=== PATIENT | female | born 1960 | race Caucasian/White ===

== ENCOUNTER 2018-03-07 14:39 | Observation (INO) ==
--- NOTE | 2018-03-06 21:25 | MH ---
cc: Rodrigue Conner MD DATE OF ADMISSION: 03/07/2018 CHIEF COMPLAINT: Pelvic pressure with left ovarian mass. HISTORY OF PRESENT ILLNESS: The patient is a 57-year-old white female, para 0-1-1-2, who returned for annual visit on 01/22/2018 reporting some pelvic pressure. Her Pap smear was normal. A pelvic ultrasound obtained on 02/09/2018, which showed a complex left adnexal mass measuring 4.6 cm, which is enlarged from a simple cyst 1 year ago. Right ovary had a simple cyst measuring 9 mm. Uterus was normal size. Endometrium is 3 mm. Her CA-125 was 7. She is now admitted for surgical evaluation. PAST MEDICAL HISTORY: History of migraines. PAST SURGICAL HISTORY: for twins in 1996. She had a breast biopsy, right side 1994. MEDICATIONS: Vitamins. ALLERGIES: NONE. SOCIAL HISTORY: She is . 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 Alcohol, tobacco and drugs are none. FAMILY HISTORY: Noncontributory. REVIEW OF SYSTEMS: Negative. PHYSICAL EXAMINATION: GENERAL: She is a well-nourished, well-developed white female. VITAL SIGNS: Stable. HEENT: Normal. CHEST: Clear. HEART: Regular rate. BREASTS: Symmetrical. ABDOMEN: Benign. PELVIC: Normal external genitalia and BUS. Vagina is normal. Cervix normal. Uterus is normal size and shape. Left adnexa is cystic. ASSESSMENT: As above. PLAN: She is now admitted for laparoscopy with planned lash BSO, possible TAHBSO, frozen section. The procedure, the risks and benefits and complications and possible need for larger incision explained and accepted. Of note, she has a history of positive antiphospholipid antibodies requiring prophylactic heparin during her . We will need to consider postoperative anticoagulation. Rodrigue Conner MD JAW/sj , 07:55 PM , 08:02 PM
[~2018-03-07 14:39] MED LIST: Bupivacaine Liposomal PF 1.3% Inj 20 ML Vial ONE
[2018-03-07] MEDS ORDERED: Sodium Chloride 0.9% 2 ML Flush PRN IV.FLUSH (15:27)
[2018-03-07] MEDS ORDERED: Chlorhexidine Gluconate 2% 1 Pack (2 Cloths) TOPICAL ONE (15:29)
[2018-03-07] MEDS ORDERED: Metoprolol Tartrate 25 MG Tablet PO ONE (15:29)
[2018-03-07] MEDS ORDERED: ceFAZolin 2 GM IV; once IV.SIG SCH (15:30)
[2018-03-07] MEDS ORDERED: Sodium Chlor 0.9% Inj 500 ML IV.SIG SCH (16:00)
[2018-03-07] MEDS ORDERED: Sugammadex Inj 200 MG/2 ML Vial IV.PUSH ONE (16:57)
[2018-03-07] MEDS ORDERED: Ketorolac Inj 30 MG/ML (IVP) Vial IV.PUSH ONE (17:15)
[2018-03-07] MEDS ORDERED: Lidocaine PF 1% Inj 5 ML Syringe OTHER ONE (17:15)
[2018-03-07] MEDS ORDERED: Zolpidem Tartrate 5 MG Tablet PO PRN (18:25)
[2018-03-07] MEDS ORDERED: Ketorolac Inj 30 MG/ML (IVP) Vial IV.PUSH SCH (18:30)
[2018-03-07] MEDS ORDERED: Pantoprazole Sodium 20 MG DR Tablet PO PRN (18:45)
[2018-03-07] MEDS ORDERED: HYDROmorphone PF Inj 2 MG/ML Vial IV.PUSH PRN (18:45)
[2018-03-07] MEDS ORDERED: fentaNYL Citrate Inj 100 MCG/2 ML Ampul ONE ×2 (18:54)
[2018-03-07] MEDS ORDERED: *Meperidine Inj 25 MG/ML Vial PERIprocedural Use ONLY ONE (18:56)
[2018-03-07] MEDS: KCL 20 mEq/D5W/NaCl 0.45% Inj 1,000 ML IV.CONT SCH (19:00)
[2018-03-07] MEDS ORDERED: *morphine SULFATE 4 MG/ML PERIprocedure ONLY ONE (19:25)
--- NOTE | 2018-03-07 19:52 | MP ---
cc: Rodrigue Conner MD DATE OF OPERATION: 03/07/2018 ADMITTING DIAGNOSIS: Left adnexal mass. POSTOPERATIVE DIAGNOSIS: Benign left ovarian tumor. PROCEDURE PERFORMED: Laparoscopy and a Lash bilateral salpingo-oophorectomy. ANESTHESIA: General, ET. SURGEON: Rodrigue Conner MD TERRITORY SERVICE REPRESENTATIVE: Candi Lynn ESTIMATED BLOOD LOSS: Less than 50 mL FLUIDS: 1.4 liters crystalloid. OBJECTIVE FINDINGS: Following induction of adequate general endotracheal anesthesia, the patient was prepped and draped supine on the operating table in dorsal lithotomy position in usual sterile fashion, with the bladder being drained by Rao catheterization. The abdomen was opened through a curving 3 cm infraumbilical incision using a knife to cut down to the skin to the fascia. The fascia was opened transversely, rectus muscle was split in the midline and the peritoneum opened sharply without incident. The mini GelPort was placed. Laparoscope was inserted. A 5 port was placed in left lower quadrant and an AirSeal on the right. The pelvic contents revealed a 4-5 cm multicystic left ovary that was free of adhesions. There were no excrescences suggestive of tumor and all peritoneal surfaces were clear. Uterus and right tube and ovary were normal. Appendix was normal, liver edge was normal. Peritoneal washings were collected. Harmonic scalpel was then used to take left ovarian pedicle, left uteroovarian ligament and portion of the left tube was sent for frozen section. Harmonic scalpel was then used to take the remainder of the left mesosalpinx, left round ligament, left broad ligament, left side of the bladder flap and left uterine vessels. Same on the right side except the ovary was not sent for study at this time. Once complete Harmonic scalpel was used to amputate the fundus from the cervix, a pouch was inserted to extract the residual left tube, uterus, right tube and ovary for permanent study. Irrigation was now performed. No bleeding was evident. Low pressure tests were done in the Trendelenburg position. There was no bleeding. Both ureters were inspected for good peristalsis. The operative sites were coated with Tisseel anticoagulant. The GelPort was now removed and that wound was closed with a running 2-0 Vicryl for peritoneum a running locking 0 Vicryl for the fascia, the quarter of the midline tied, subcutaneous with running 3-0 Vicryl and the skin with a right subcuticular 3-0 Monocryl. The scope was now reinserted through the lower ports to inspect the GelPort site was well closed. No entrapment of tissue. The pelvis inspected. There was no bleeding, so the scope was removed, gas was allowed to escape. The small ports were removed and sutured with 3-0 Monocryl. Dermabond applied. All counts were correct and the patient was awakened and taken to the recovery room in good condition. MD ESTELA Marcano/ct , 06:33 PM , 06:41 PM MTDD
[2018-03-07] MEDS ORDERED: Sodium Chloride 0.9% 2 ML Flush BID IV.FLUSH SCH (21:00)
[2018-03-07 21:15] LABS: Hematocrit 40.4 % (35.0-46.0); Hemoglobin 14.2 gm/dL (11.6-15.3); Mean Corpuscular HGB Conc 35.1 % (32.0-36.0); Mean Corpuscular Hemoglobin 31.5 pg (27.0-34.0); Mean Corpuscular Volume 89.7 fL (80.0-100.0); Mean Platelet Volume 9.1 fL (7.0-11.0); Platelet Count 211 th/mm3 (150-450); Red Blood Count 4.51 mil/mm3 (4.00-5.30); Red Cell Distribution Width 12.9 % (11.6-17.2)
[2018-03-07 21:17] LABS: White Blood Count 10.7 th/mm3 (4.0-11.0)
[2018-03-08] MEDS: KCL 20 mEq/D5W/NaCl 0.45% Inj 1,000 ML IV.CONT SCH (05:10)
[2018-03-08 05:39] LABS: Baso % (Auto) 0.3 % (0.0-2.0); Hematocrit 39.4 % (35.0-46.0); Hemoglobin 13.3 gm/dL (11.6-15.3); Lymph # (Auto) 1.2 th/mm3 (1.0-4.8); Lymph % (Auto) 14.6 % (9.0-44.0); Mean Corpuscular HGB Conc 33.8 % (32.0-36.0); Mean Corpuscular Hemoglobin 30.7 pg (27.0-34.0); Mean Corpuscular Volume 90.8 fL (80.0-100.0); Mean Platelet Volume 9.1 fL (7.0-11.0); Mono # (Auto) 0.3 th/mm3 (0.0-0.9); Mono % (Auto) 3.7 % (0.0-8.0); Neut % (Auto) 81.4 % (16.0-70.0); Platelet Count 216 th/mm3 (150-450); Red Blood Count 4.34 mil/mm3 (4.00-5.30); Red Cell Distribution Width 12.8 % (11.6-17.2); White Blood Count 8.6 th/mm3 (4.0-11.0)
[2018-03-08 06:02] LABS: Calcium 8.7 mg/dL (8.5-10.1); Carbon Dioxide 27.5 meq/L (21.0-32.0); Potassium 4.5 meq/L (3.5-5.1)
[2018-03-08] MEDS ORDERED: Enoxaparin Inj 40 MG/0.4 ML Syringe SQ SCH (09:00)
[2018-03-08 12:20] VITALS: O2SAT 99
[2018-03-08 17:23] VITALS: BP 100/62; PULSE 59; RESP 18; TEMP 98.4
== END 2018-03-08 17:28 | disposition home or self-care (01) ==
LOC: HOR 14:39 → HSDI 14:39 → H1EA 19:45
PROVIDERS: ADMIT Obstetrics & Gynecology; ATTEND Obstetrics & Gynecology
PROC: LAPLASH (ICD-10-PCS; 2018-03-07 17:08)